=== PATIENT | male | born 1985 | race Caucasian/White ===

== ENCOUNTER → 2018-02-27 | Outpatient (REF) | payer BC | LOC: M SFHCLERA 11:47 | DX: J06.9 Acute upper respiratory infection, unspecified (principal) ==

== ENCOUNTER → 2019-05-28 | Outpatient (CLI) | payer BC, OTHER ==
[~2019-05-28] MED LIST: CIPR500T3 PO; PERCOCET PO
--- NOTE | 2019-05-28 13:03 | REP ---
PA and lateral chest: There are no comparisons. The lung duckworth are clear. The cardiac size is normal. The merritt, mediastinum, and skeletal structures are unremarkable. Impression: Negative PA and lateral chest. Electronically Signed by Shad Up MD 05/28/2019 12:54 P
== END ==
LOC: M LRY 12:28
PROVIDERS: ATTEND Physician Assistant
DX: R05 Cough (principal); J10.1 Influenza due to other identified influenza virus with other respiratory manifestations